=== PATIENT | female | born 1945 | race Caucasian/White ===

== ENCOUNTER 2017-03-27 10:56 | Emergency (ER) | payer MEDICARE, OTHER ==
[2017-03-27 11:50] LABS: BILIRUBIN,URINE NEGATIVE (NEGATIVE)
[2017-03-27 12:04] LABS: UA CHARGE (STRIP ONLY) YES; UR CULTURE IF IND NOT INDICATED
--- NOTE | 2017-03-27 12:15 | ED Physician Documentation ---
History of Present Illness - Stated complaint Stated Complaint: SHAISTA - Chief complaint Chief Complaint: General - History obtained from History obtained from: Patient - History of Present Illness Timing: Other (This is a very pleasant 71-year-old woman with history of coronary disease and [place] who is visiting from [place]. She is under a lot of stress, her son-in-law, who she feels is like her own son, is on hospice for rare form of kidney cancer. He asked her to go out to get her a diet Coke today and she drove to [address] and when she got out of the car she felt like her knees were stiff and then she started to feel lightheaded and strange. She has trouble describing it beyond that, there was no associated chest pain, trouble breathing, sweats or nausea. She did recently have vein stripping of some varicose veins but feels she is healing well and has never had a DVT. Although she has been traveling.) Review of Systems Constitutional: denies: Fever, Chills Nose: denies: Rhinorrhea / runny nose, Congestion Cardiac: denies: Chest pain / pressure, Palpitations Respiratory: denies: Dyspnea, Cough, Hemoptysis, Wheezing GI: denies: Abdominal Pain, Nausea, Vomiting PD PAST MEDICAL HISTORY - Past Medical History Past Medical History: Yes Cardiovascular: Hypertension, High cholesterol, [place] - Past Surgical History Past Surgical History: Yes Ortho: Knee replacement Cardiovascular: Coronary stent - Present Medications Home Medications: Ambulatory Orders Medication Instructions Recorded Confirmed Carvedilol 3.125 mg PO DAILY 03/27/17 03/27/17 Lovastatin [Altoprev] 20 mg PO DAILY 03/27/17 03/27/17 Meloxicam 7.5 mg PO PRN 03/27/17 Oxybutynin [Ditropan] 5 mg PO BID 03/27/17 03/27/17 - Allergies Allergies/Adverse Reactions: Allergies Allergy/AdvReac Type Severity Reaction Status Date / Time latex AdvReac Rash Verified 03/27/17 11:45 - Social History Does the pt smoke?: No Smoking Status: Never smoker PD ED PE NORMAL - Vitals Vital signs reviewed: Yes - General General: Alert and oriented X 3, No acute distress - Neck Neck: Supple, no meningeal sign, No bony TTP - Cardiac Cardiac: RRR, No murmur - Respiratory Respiratory: No respiratory distress, Clear bilaterally - Abdomen Abdomen: Non tender - Extremities Extremities: Other (Bruising in a venous distribution of the right leg with moderate bilateral pitting pedal edema, no calf tenderness.) - Neuro Neuro: Alert and oriented X 3, Normal speech - Psych Psych: Normal mood, Normal affect Results - Vitals Vitals: Vital Signs - 24 hr 03/27/17 03/27/17 03/27/17 11:02 11:54 12:38 Temperature 36.5 C Heart Rate 56 L 51 L 61 Respiratory 16 16 13 Rate Blood Pressure 143/73 H 128/60 136/73 H O2 Saturation 100 99 100 03/27/17 13:00 Temperature Heart Rate 63 Respiratory 15 Rate Blood Pressure 137/67 H O2 Saturation 99 Oxygen O2 Source Room air - EKG (time done) 1115 Rate: Rate (enter#) (51) Rhythm: NSR [place]: Normal Intervals: Normal MA QRS: Normal Ischemia: Normal ST segments Computer interpretation: Agree with computer - Labs Labs: Laboratory Tests 03/27/17 03/27/17 03/27/17 11:20 11:52 12:20 WBC RBC Hgb Hct MCV MCH MCHC RDW Plt Count MPV Neut # Lymph # [place] # Eos # Baso # Absolute Nucleated RBC Nucleated RBCs D-Dimer Sodium 138 Potassium 4.3 Chloride 104 Carbon Dioxide 28 Anion Gap 6.0 BUN 24 H Creatinine 0.7 Estimated GFR (MDRD) 82 L Glucose 88 POC Whole Bld Glucose 79 Calcium 9.5 Total Bilirubin 0.7 AST 23 ALT 15 Alkaline Phosphatase 43 Troponin I Total Protein 6.8 Albumin 3.8 Globulin 3.0 Albumin/Globulin Ratio 1.3 Lipase 19 L Urine Color YELLOW Urine Clarity CLEAR Urine pH 6.0 Ur Specific [place] <=1.005 Urine Protein NEGATIVE Urine Glucose (UA) NEGATIVE Urine Ketones NEGATIVE Urine Occult Blood NEGATIVE Urine Nitrite NEGATIVE Urine Bilirubin NEGATIVE Urine Urobilinogen 0.2 (NORMAL) Ur Leukocyte Esterase NEGATIVE Ur Microscopic Review NOT INDICATED Urine Culture Comments NOT INDICATED 03/27/17 03/27/17 03/27/17 12:20 12:20 12:20 WBC 4.9 RBC 4.17 L Hgb 12.6 Hct 37.7 MCV 90.5 MCH 30.2 MCHC 33.4 RDW 14.0 Plt Count 216 MPV 7.2 L Neut # 3.4 Lymph # 0.9 L [place] # 0.4 Eos # 0.1 Baso # 0.0 Absolute Nucleated RBC 0.00 Nucleated RBCs 0.1 D-Dimer 282.3 H Sodium Potassium Chloride Carbon Dioxide Anion Gap BUN Creatinine Estimated GFR (MDRD) Glucose POC Whole Bld Glucose Calcium Total Bilirubin AST ALT Alkaline Phosphatase Troponin I < 0.04 Total Protein Albumin Globulin Albumin/Globulin Ratio Lipase Urine Color Urine Clarity Urine pH Ur Specific [place] Urine Protein Urine Glucose (UA) Urine Ketones Urine Occult Blood Urine Nitrite Urine Bilirubin Urine Urobilinogen Ur Leukocyte Esterase Ur Microscopic Review Urine Culture Comments PD MEDICAL DECISION MAKING - ED course ED course: 71-year-old woman presents with nonspecific lightheadedness in the setting of stress and decreased oral intake. Her examination and EKG are normal. Cardiac enzymes and basic blood work are unremarkable. Of note her d-dimer flags is high, however I consider this number to be negative, most authorities use a cut off of 400 or 500. Departure - Departure Disposition: 01 Home, Self Care Clinical Impression: Dizziness, Dehydration Condition: Good Record reviewed to determine appropriate education?: Yes Instructions: ED Dehydration, ED Dizziness [facility] Comments: Call your doctor to arrange a follow-up appointment, make the next available appointment. In the interim, return anytime if worse or if new symptoms develop. Your blood pressure was elevated today on check into the emergency department. This does not mean that you have hypertension, it is a common phenomenon to come to the emergency department and have elevated blood pressure. I recommend that she see her primary care physician within the week to have it rechecked when you are feeling better. Discharge Date/Time: 03/27/17 13:04
[2017-03-27 12:31] LABS: BASOPHILS % (AUTO) 0.5 %; EOSINOPHILS # (AUTO) 0.1 10^3/uL (0.0-0.7); EOSINOPHILS % (AUTO) 3.1 %; HCT - HEMATOCRIT 37.7 % (37.0-47.0); HGB - HEMOGLOBIN 12.6 g/dL (12.0-16.0); LYMPHOCYTES # (AUTO) 0.9 10^3/uL (1.5-3.5); MEAN CORPUSCULAR HEMOGLOBIN 30.2 pg (27.0-31.0); MEAN CORPUSCULAR HGB CONC 33.4 g/dL (32.0-36.0); MEAN CORPUSCULAR VOLUME 90.5 fL (81.0-99.0); MEAN PLATELET VOLUME 7.2 fL (7.9-10.8); MONOCYTES # (AUTO) 0.4 10^3/uL (0.0-1.0); MONOCYTES % (AUTO) 8.1 %; NEUTROPHILS # (AUTO) 3.4 10^3/uL (1.5-6.6); NEUTROPHILS % (AUTO) 69.3 %; NUCLEATED RED BLOOD CELLS AUTO 0.1 /100WBC; RED BLOOD COUNT 4.17 10^6/uL (4.20-5.40); UNCORRECTED WHITE BLOOD COUNT 4.9 x10^3/uL; WHITE BLOOD COUNT 4.9 x10^3/uL (4.8-10.8)
[2017-03-27 12:44] LABS: ALBUMIN/GLOBULIN RATIO 1.3 (1.0-2.2); BILIRUBIN,TOTAL 0.7 mg/dL (0.2-1.0); CALCIUM 9.5 mg/dL (8.5-10.3); CREATININE 0.7 mg/dL (0.4-1.0); POTASSIUM 4.3 mmol/L (3.5-5.0); TOTAL PROTEIN 6.8 g/dL (6.7-8.2)
[2017-03-27 13:00] VITALS: BP 137/67
== END 2017-03-27 13:04 | disposition home or self-care (01) ==
LOC: ED 10:56
DX: E86.0 Dehydration (principal); R42 Dizziness and giddiness; I10 Essential (primary) hypertension; I25.2 Old myocardial infarction
CPT/HCPCS: 36415; 80053; 81001; 81003; 83690; 84484; 85025; 85379; 87086; 93005; 99283; 99284